=== PATIENT | female | born 1965 | race Caucasian/White ===

== ENCOUNTER 2020-01-22 10:27 | Outpatient (NON) | payer OTHER, SELFPAY ==
[2020-01-22 20:51] LABS: SARS-CoV-2 RNA PCR Negative
== END 2020-01-22 10:28 ==
LOC: ANHCOVIDDT 10:30
PROVIDERS: Visit Provider Internal Medicine
DX: R43.2 Parageusia (principal); R63.0 Anorexia
CPT/HCPCS: 87635; C9803; U0003

== ENCOUNTER → 2021-12-12 13:40 | Outpatient (CLI) | payer OTHER, SELFPAY ==
--- NOTE | ~2021-12-12 | DEXA_ITS ---
Bone Density Report Name: BEAU RIVERA Age: 56 Sex: Female Ethnicity: White Date of : 1965 Indication: postmenopausal; screening for osteoporosis; height loss; prior fracture; Referring Provider: MICAELA, RIKKI [place] Study: Bone densitometry was performed. Exam Date: December 12, 2021 Accession number: [id number] Bone Density: Region BMD T-score Z-score Classification AP Spine (L1-L4) 0.918 -1.2 0.0 Osteopenia Femoral Neck (Left) 0.744 -1.0 0.2 Normal Total Hip (Left) 0.801 -1.2 -0.4 Osteopenia Femoral Neck (Right) 0.718 -1.2 0.0 Osteopenia Total Hip (Right) 0.772 -1.4 -0.6 Osteopenia Total Hip Mean 0.787 -1.3 -0.5 Osteopenia World Health Organization criteria for BMD impression classify patients as: Normal (T-score at or above -1.0), Osteopenia (T-score between -1.0 and -2.5), or Osteoporosis (T-score at or below -2.5). 10-year Fracture Risk(1): Major Osteoporotic Fracture 12% Hip Fracture 0.8% Reported Risk Factors: [place] (), Neck BMD=0.718, BMI=26.1, previous fracture (1) FRAX(R) Version 3.08. Fracture probability calculated for an untreated patient. Fracture probability may be lower if the patient has received treatment. Clinical Information Provided by Patient: Has had a low trauma fracture Has used the following medications: Vitamin D, Calcium Patient maximum height was 68 Menopause Age: 38 Does not regularly consume dairy products Onset of menses at age 10 Number of children 2 Impression: The patient has low bone mass, based on the Right Total Hip T-score. The patient has an estimated ten-year risk of hip fracture of 0.8% and an estimated ten-year risk of major fracture of 12%, based on the WHO FRAX algorithm. The patient has risk factors, including: previous fracture. Discussion: BONE DENSITY IS LOW AT ONE OR MORE SKELETAL SITES. This patient's lowest T-score is low at one or more skeletal sites. It meets the World Health Organization's (WHO) criteria for ?low bone mass? (T-score between -1.0 and -2.5). The patient's 10-year risk of fracture as calculated by FRAX is less than the threshold where pharmacological therapy is recommended by the National Osteoporosis Foundation (NOF). However, all treatment decisions require clinical judgment and consideration of individual patient factors, including patient preferences, comorbidities, previous drug use, risk factors not captured in the FRAX model (e.g., frailty, falls, vitamin D deficiency, increased bone turnover, interval significant decline in bone density) and possible under or overestimation of fracture risk by FRAX. The patient should follow a healthful lifestyle (good nutrition with adequate calcium and vitamin D, and appropriate weight-bearing exercise). Follow-Up: Consider repeating this study in 2 to 3 years to
== END ==
PROVIDERS: PCP Internal Medicine; Visit Provider Internal Medicine
DX: Z13.820 Encounter for screening for osteoporosis (principal); M85.88 Other specified disorders of bone density and structure, other site; M85.852 Other specified disorders of bone density and structure, left thigh; M85.851 Other specified disorders of bone density and structure, right thigh
CPT/HCPCS: 77080

== ENCOUNTER 2023-11-22 12:44 | Outpatient (CLI) | payer BC, SELFPAY ==
--- NOTE | 2023-11-22 13:02 | ECG_ITS ---
Test Date: 2023-11-22 13:15:20 Measurements Intervals [place] Rate: 72 P: 60 CT: 145 QRS: 57 QRSD: 94 T: 52 QT: 407 QTc: 448 Interpretive Statements SINUS RHYTHM No previous ECG available for comparison Electronically Signed On 11-23-2023 15:25:59 CDT by Arielle Jeong M.D.
== END 2023-11-22 12:45 | disposition home or self-care (01) ==
LOC: ANHCARD 12:51
PROVIDERS: PCP Internal Medicine; Visit Provider Podiatrist Foot & Ankle Surgery
DX: R03.0 Elevated blood-pressure reading, without diagnosis of hypertension (principal)
CPT/HCPCS: 93005

== ENCOUNTER 2024-09-22 07:56 | Day surgery (SDC) | payer OTHER, SELFPAY ==
[2024-09-04 14:55] VITALS: BMI 22.8
--- NOTE | 2024-09-04 15:30 | SUR.PREOP ---
Pt requested Sutab for her prep. Order was sent to her pharmacy and I emailed her prep instructions for the Sutab per pt request.
[2024-09-22 08:08] VITALS: BP 111/68; PULSE 73; RESP 16; TEMP 36.1; O2SAT 100; BMI 23.5
[2024-09-22] MEDS: LACTATED RINGERS 1,000 ML 150 ML IV CONT (08:18)
--- NOTE | 2024-09-22 09:03 | P.PNAN_ITS ---
Anes - Initial Pre Proc Eval Procedure: Operation Date: 09/22/24 09:30 Proposed Procedures p Screening Colonoscopy - Kevin Aguilar MD Date/Time: 09/22/24 09:03 Surgeon: Kevin Aguilar MD Pre Op Diagnosis: Screening Patient Data Age: 58 Gender: F Height: 1.73 m Weight: 70.2 kg Last Vital Signs Temp 36.1 C L 09/22/24 08:08 Pulse 73 09/22/24 08:08 Resp 16 09/22/24 08:08 BP 111/68 09/22/24 08:08 Pulse Ox 100 09/22/24 08:08 O2 Del Method Room Air 09/22/24 08:08 Allergies Allergy/AdvReac Type Severity Reaction Status Date / Time No Known Allergies Allergy Mild Verified 09/22/24 08:06 Home Medications ?Medication ?Instructions ?Recorded ?Confirmed ?Type bupropion HCl 150 mg 24 hr tablet, 150 mg PO DAILY 05/18/24 09/22/24 History extended release sodium sul 1.479 gram-potas ch See Rx Instructions PO .COMPLEX 09/04/24 Rx 0.188 gram-magnes sul 0.225 gram #24 tabs tablet (Sutab) Patient hx anesthesia problems: none Family hx anesthesia problems: none Results Review: All pre-operative results and documents have been reviewed as part of the pre- operative evaluation. 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 Family History Family History Mother Depression Social History Social History Smoking status: Never smoker Substance use: never Substance use type: does not use Living arrangements: with family Spiritual care concerns: No Anes - Eval Final PreProcedure Day of Procedure 09/22/24 09:03 Patient weight: normal Heart: regular rate and rhythm Lungs: clear to auscultation Airway: Mallampati scale class II Neurological: alert and oriented Last oral intake: >/= 8 hours ASA classification: II Emergent: no Anesthetic plan: proceed Anesthesia type and monitoring: general GIVS and standard monitoring Results Review: All pre-operative results and documents have been reviewed as part of the pre- operative evaluation. Informed Consent: The patient's anesthetic plan and its attendant risks and benefits were discussed with the patient/family/POA. Questions were solicited and answers provided to the satisfaction of the patient/family/POA.
--- NOTE | 2024-09-22 09:12 | PM.IMHP ---
H&P: HPI History of Present Illness Date/Time: 09/22/24 09:12 Chief Complaint: screening colonoscopy Narrative: This is the patient's 2nd colonoscopy. There are no GI symptoms and there is no family history of colorectal cancer. 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 Family History Family History Mother Depression Social History Social History Smoking status: Never smoker Substance use: never Substance use type: does not use Living arrangements: with family Spiritual care concerns: No Meds Home Medications and Allergies Home Medications ?Medication ?Instructions ?Recorded ?Confirmed ?Type bupropion HCl 150 mg 24 hr tablet, 150 mg PO DAILY 05/18/24 09/22/24 History extended release sodium sul 1.479 gram-potas ch See Rx Instructions PO .COMPLEX 09/04/24 Rx 0.188 gram-magnes sul 0.225 gram #24 tabs tablet (Sutab) Allergies Allergy/AdvReac Type Severity Reaction Status Date / Time No Known Allergies Allergy Mild Verified 09/22/24 08:06 Vital Signs Vital Signs - 24 hr 09/22/24 08:08 Temperature 97 F L Pulse Rate 73 Respiratory Rate 16 Blood Pressure 111/68 Pulse Oximetry 100 Oxygen Delivery Room Air Exam Const: General: cooperative and healthy appearing Resp: Effort & Inspection: normal respiratory effort and able to speak in complete sentences Auscultation: clear to auscultation bilaterally Cardio: Rate: regular rate Rhythm: regular rhythm GI: Inspection: normal to inspection GI Palp: No No hepatosplenomegaly present Auscultation: normal bowel sounds Rectal Exam: deferred Skin: General skin exam: normal color Psych: Appearance: grossly normal Mental Status: mental status grossly normal Assessment and Plan Assessment and plan (1) Encounter for screening colonoscopy: Code(s): Z12.11 - Encounter for screening for malignant neoplasm of colon Status: Acute Assessment and Plan: This is the patient's first colonoscopy. There are no GI symptoms and there is no family history of colorectal cancer.
[2024-09-22 09:40] VITALS: BP 98/60; PULSE 57; RESP 18; O2SAT 99
[2024-09-22 09:50] VITALS: BP 116/70; PULSE 59; RESP 17; O2SAT 99
[2024-09-22 10:00] VITALS: BP 113/59; PULSE 58; RESP 15; O2SAT 99
== END 2024-09-22 10:15 | disposition home or self-care (01) ==
PROVIDERS: PCP Nurse Practitioner Family; Referring Provider Nurse Practitioner Family; Visit Provider Internal Medicine Gastroenterology
PROC: 0DJD8ZZ Inspection of Lower Intestinal Tract, Via Natural or Artificial Opening Endoscopic (ICD-10-PCS; CPT 45378; principal; 2024-09-22 09:30)
DX: Z12.11 Encounter for screening for malignant neoplasm of colon (principal); Z79.899 Other long term (current) drug therapy
CPT/HCPCS: 45378; J2003; J2704; J7120

== ENCOUNTER 2025-02-05 07:38 | Outpatient (CLI) | payer OTHER, SELFPAY ==
--- NOTE | 2025-02-05 07:48 | ECG_ITS ---
Test Date: 2025-02-05 08:07:20 Measurements Intervals [place] Rate: 66 P: 44 MS: 143 QRS: 52 QRSD: 82 T: 50 QT: 426 QTc: 450 Interpretive Statements SINUS RHYTHM Compared to ECG 11/22/2023 13:15:20 No significant changes Electronically Signed On 02-06-2025 10:45:56 [employer] by Amol Cai M.D.
== END 2025-02-05 07:39 | disposition home or self-care (01) ==
PROVIDERS: PCP Nurse Practitioner Family; Visit Provider Podiatrist Foot & Ankle Surgery
DX: Z01.818 Encounter for other preprocedural examination (principal)
CPT/HCPCS: 93005